=== PATIENT | male | born 1960 | race Caucasian/White ===

== ENCOUNTER 2023-08-01 16:16 | Inpatient (IN) ==
[2023-08-01] MEDS ORDERED: NS 0.9% 1000 ml BAG 1,000 ML IV ONE (16:22)
[2023-08-01 18:18] LABS: ABS Monocytes 0.2 10^3/uL (0.0-1.1); ABS Neutrophils 4.4 10^3/uL (1.5-7.6); ABS Nucleated RBC 0.02 10^3/ul; Eosinophil % 0.2 %; Hematocrit 35.6 % (38-53); Hemoglobin 12.1 g/dL (13.2-16.3); Lymphocyte % 18.1 %; Mean Corpuscular Hemoglobin 32.3 pg (27-33); Mean Corpuscular Volume 95.3 fL (80-97); Mean Platelet Volume 6.7 fL (7.5-11.2); Nucleated Red Blood Cells % 0.3 %/100WBC (0.0-0.8); Platelet Count 227 10^3/uL (150-450); Red Blood Count 3.74 10^6/uL (4.06-5.63); Red Cell Distribution Width 15.7 % (12-17); White Blood Count 5.6 10^3/uL (3.6-10.2)
[2023-08-01 18:38] LABS: Albumin 2.9 g/dL (3.2-5.2); Albumin/Globulin Ratio 0.9 (1-3); Calcium 8.4 mg/dL (8.6-10.3); Creatinine, Serum 1.07 mg/dL (0.67-1.17); Globulin 3.4 g/dL (2-4); Magnesium 1.3 mg/dL (1.9-2.7); Potassium 3.9 mmol/L (3.5-5.0); Total Bilirubin 1.1 mg/dL (0.2-1.0); Total Protein 6.3 g/dL (6.4-8.9); eGFR CKD-EPI 77.5 (>60)
[2023-08-01 19:03] LABS: TSH Ultra Thyroid Stim Horm 17.17 mcIU/mL (0.34-5.60)
[2023-08-01] MEDS: Lactated Ringers 1000 ml BAG 1,000 ML IV SCH ×2 (19:57→23:56)
[2023-08-01] MEDS ORDERED: Magnesium Sulfate 2 gm BAG 2 GM/50 ML BAG IVPB ONE (22:33)
[2023-08-02] MEDS ORDERED: Lactated Ringers 1000 ml BAG 1,000 ML IV ONE ×3 (00:11→18:54)
[2023-08-02] MEDS ORDERED: Remdesivir 100 mg Vial 200 MG in NS 0.9% 250 ml 210 ML IV ONE ×2 (01:00→11:00)
[2023-08-02] MEDS ORDERED: Norepinephrine 4 MG/250mL D5W 4,000 MCG/250 ML BAG IV ONE (01:23)
[2023-08-02] MEDS: Norepinephrine 4 MG/250mL D5W 4,000 MCG/250 ML BAG IV SCH ×4 (01:41→23:45)
[2023-08-02 05:11] LABS: INR 1.15 (0.83-1.13)
[2023-08-02 05:37] LABS: ABS Lymphocytes 0.6 10^3/uL (1.0-4.8); ABS Monocytes 0.1 10^3/uL (0.0-1.1); ABS Neutrophils 1.2 10^3/uL (1.5-7.6); ABS Nucleated RBC 0.03 10^3/ul; Eosinophil % 0.1 %; Hematocrit 29.3 % (38-53); Hemoglobin 9.9 g/dL (13.2-16.3); Lymphocyte % 33.8 %; Mean Corpuscular Hemoglobin 32.2 pg (27-33); Mean Corpuscular Hgb Conc 33.7 g/dL (31-36); Mean Corpuscular Volume 95.7 fL (80-97); Nucleated Red Blood Cells % 1.5 %/100WBC (0.0-0.8); Platelet Count 192 10^3/uL (150-450); Red Blood Count 3.06 10^6/uL (4.06-5.63); Red Cell Distribution Width 15.5 % (12-17); White Blood Count 1.9 10^3/uL (3.6-10.2)
[2023-08-02 05:39] LABS: Magnesium 1.7 mg/dL (1.9-2.7)
[2023-08-02 05:46] LABS: ALT 9 U/L (7-52); Albumin 2.2 g/dL (3.2-5.2); Albumin/Globulin Ratio 0.9 (1-3); Alkaline Phosphatase 75 U/L (35-149); Anion Gap 10 mmol/L (2-16); Blood Urea Nitrogen 38 mg/dL (6-24); CO2 Carbon Dioxide 22 mmol/L (22-32); Calcium 7.4 mg/dL (8.6-10.3); Chloride 98 mmol/L (101-111); Creatinine, Serum 0.79 mg/dL (0.67-1.17); Globulin 2.5 g/dL (2-4); Glucose 78 mg/dL (70-100); Sodium 130 mmol/L (135-145); Total Protein 4.7 g/dL (6.4-8.9); eGFR CKD-EPI 99.2 (>60)
[2023-08-02 05:52] LABS: TSH Ultra Thyroid Stim Horm 9.35 mcIU/mL (0.34-5.60)
[2023-08-02] MEDS ORDERED: Magnesium Sulfate 2 gm BAG 2 GM/50 ML BAG IVPB ONE (05:52)
[2023-08-02 06:34] LABS: Calcium 7.3 mg/dL (8.6-10.3); Creatinine, Serum 0.8 mg/dL (0.67-1.17); Potassium 3.3 mmol/L (3.5-5.0); eGFR CKD-EPI 98.8 (>60)
[2023-08-02] MEDS: KCL 20 MEQ/100 ML IVPREMIX 20 MEQ/100 ML BAG IV SCH ×2 (07:36→10:18)
[2023-08-02] MEDS ORDERED: cefTRIAXone 1 gm/50 mL D5W 1 GM/50 ML BAG IV SCH (10:30)
[2023-08-02] MEDS: DOXYcycline 100 MG in NS 0.9% 250 ml 250 ML IVPB SCH (14:02)
[2023-08-02] MEDS: Lactated Ringers 1000 ml BAG 1,000 ML IV SCH (16:32)
[2023-08-02 16:42] LABS: Calcium 7.3 mg/dL (8.6-10.3); Creatinine, Serum 1.01 mg/dL (0.67-1.17); Phosphorus 2.5 mg/dL (2.5-5.0)
[2023-08-02 17:28] LABS: PO2 Arterial 128 mmHg (80-100)
[2023-08-02 17:32] LABS: PCO2 Arterial <20 mmHg (35-45)
[2023-08-02] MEDS: Enoxaparin 30 MG/0.3 ML SYR SUBCUT SCH (19:18)
[2023-08-02] MEDS ORDERED: Iohexol 300 (CONTRAST) 10 ML SDV IV ONE (19:18)
[2023-08-02] MEDS: metroNIDAZOLE IV 500 MG/100ML 500 MG/100 ML BAG IVPB SCH (21:28)
[2023-08-03] MEDS: DOXYcycline 100 MG in NS 0.9% 250 ml 250 ML IVPB SCH ×2 (01:13→13:20)
[2023-08-03] MEDS ORDERED: Magnesium Hydroxide LIQ 30 ML UDC PO ONE (02:06)
[2023-08-03] MEDS: metroNIDAZOLE IV 500 MG/100ML 500 MG/100 ML BAG IVPB SCH ×3 (04:12→20:09)
[2023-08-03 04:49] LABS: Urine Appearance Turbid; Urine Bilirubin 2+ (Negative); Urine Blood 1+ (Negative); Urine Color Amber; Urine Glucose Negative (Negative); Urine Ketones Negative (Negative); Urine Nitrite Negative (Negative); Urine Protein 3+(>=500 mg/dL) (Negative); Urine Specific Gravity 1.024 (1.002-1.030); Urine Urobilinogen Positive (Negative)
[2023-08-03 04:54] LABS: Hematocrit 23.5 % (38-53); Mean Corpuscular Hemoglobin 32.6 pg (27-33); Mean Corpuscular Volume 95.8 fL (80-97); Mean Platelet Volume 7.1 fL (7.5-11.2); Platelet Count 84 10^3/uL (150-450); Red Blood Count 2.45 10^6/uL (4.06-5.63); Red Cell Distribution Width 15.8 % (12-17); White Blood Count 2.3 10^3/uL (3.6-10.2)
[2023-08-03 04:56] LABS: Urine Bacteria 1+ (Absent); Urine Red Blood Cell 3+(>10/hpf) (Absent); Urine Squamous Epithelial Cell Present (Absent); Urine White Blood Cell 2+(11-20/hpf) (Absent)
[2023-08-03] MEDS: Norepinephrine 4 MG/250mL D5W 4,000 MCG/250 ML BAG IV SCH ×2 (05:14→09:40)
[2023-08-03 05:20] LABS: Calcium 7.3 mg/dL (8.6-10.3); Creatinine, Serum 0.84 mg/dL (0.67-1.17); Magnesium 1.8 mg/dL (1.9-2.7); Phosphorus 2.2 mg/dL (2.5-5.0); Potassium 3.3 mmol/L (3.5-5.0); eGFR CKD-EPI 97.4 (>60)
[2023-08-03 05:39] LABS: ABS Lymphocytes 0.3 10^3/uL (1.0-4.8); ABS Neutrophils 1.9 10^3/uL (1.5-7.6); ABS Nucleated RBC 0.04 10^3/ul; Eosinophil % 0.2 %; Lymphocyte % 15.3 %; Nucleated Red Blood Cells % 1.6 %/100WBC (0.0-0.8)
[2023-08-03 06:09] LABS: ABS Lymphocytes 0.5 10^3/uL (1.0-4.8); ABS Monocytes 0.1 10^3/uL (0.0-1.1); ABS Nucleated RBC 0.03 10^3/ul; Eosinophil % 0.2 %; Hemoglobin 7.9 g/dL (13.2-16.3); Lymphocyte % 18.4 %; Mean Corpuscular Hemoglobin 32.9 pg (27-33); Mean Corpuscular Hgb Conc 34.4 g/dL (31-36); Mean Corpuscular Volume 95.6 fL (80-97); Mean Platelet Volume 7.2 fL (7.5-11.2); Nucleated Red Blood Cells % 1.3 %/100WBC (0.0-0.8); Platelet Count 85 10^3/uL (150-450); Red Blood Count 2.41 10^6/uL (4.06-5.63); Red Cell Distribution Width 15.9 % (12-17); White Blood Count 2.6 10^3/uL (3.6-10.2)
[2023-08-03] MEDS: Lactated Ringers 1000 ml BAG 1,000 ML IV SCH (06:25)
[2023-08-03] MEDS ORDERED: Cefepime ADVAN 1 GM in NS 0.9% 50 ML 50 ML IVPB SCH (08:00)
[2023-08-03] MEDS: Cefepime 1 GM in Dextrose 1 GM/50 ML BAG IV SCH ×2 (08:39→20:08)
[2023-08-03] MEDS ORDERED: Remdesivir 100 mg Q24H MAINTENANCE DOSING IV SCH (09:00)
[2023-08-03] MEDS: Remdesivir 100 mg Q24H MAINTENANCE DOSING IV SCH (09:09)
[2023-08-03] MEDS ORDERED: Magnesium Sulfate 2 gm BAG 2 GM/50 ML BAG IVPB ONE (11:18)
[2023-08-03] MEDS ORDERED: Potassium Phosphate IV 30 MMOL in NS 0.9% 250 ml 250 ML IVPB ONE (11:19)
[2023-08-03] MEDS: D5LR 1000 ml BAG 1,000 ML IV SCH ×2 (11:25→21:16)
[2023-08-03] MEDS ORDERED: Iohexol 350 (CONTRAST) 500 ML MDV IV ONE (12:28)
[2023-08-03] MEDS: Thiamine 100 MG/ML 2 ml VIAL 500 MG in NS 0.9% 250 ml 250 ML IV SCH ×2 (14:32→21:45)
[2023-08-03 16:30] LABS: Calcium 6.8 mg/dL (8.6-10.3); Creatinine, Serum 0.73 mg/dL (0.67-1.17); Magnesium 2.2 mg/dL (1.9-2.7); Phosphorus 3.1 mg/dL (2.5-5.0); Potassium 3.5 mmol/L (3.5-5.0); eGFR CKD-EPI 101.6 (>60)
[2023-08-03] MEDS: Enoxaparin 30 MG/0.3 ML SYR SUBCUT SCH (17:43)
[2023-08-03] MEDS ORDERED: Norepinephrine *QUAD STRENGTH* 16 mg/250 mL NS (ICU ONLY) IV SCH (23:45)
[2023-08-04] MEDS: DOXYcycline 100 MG in NS 0.9% 250 ml 250 ML IVPB SCH ×2 (00:55→12:58)
[2023-08-04] MEDS: metroNIDAZOLE IV 500 MG/100ML 500 MG/100 ML BAG IVPB SCH ×3 (04:40→20:30)
[2023-08-04 06:09] LABS: Calcium 6.9 mg/dL (8.6-10.3); Creatinine, Serum 0.61 mg/dL (0.67-1.17); Magnesium 1.8 mg/dL (1.9-2.7); Phosphorus 2.5 mg/dL (2.5-5.0); Potassium 3.2 mmol/L (3.5-5.0); eGFR CKD-EPI 107.3 (>60)
[2023-08-04] MEDS ORDERED: Magnesium Sulfate IV 1GM/100ML 1 GM/100 ML BAG IV ONE (06:35)
[2023-08-04] MEDS ORDERED: KCL 20 MEQ/100 ML IVPREMIX 20 MEQ/100 ML BAG IV ONE (06:36)
[2023-08-04 07:02] LABS: Hematocrit 20.2 % (38-53); Hemoglobin 7.1 g/dL (13.2-16.3); Mean Corpuscular Hemoglobin 33.5 pg (27-33); Mean Corpuscular Hgb Conc 35.3 g/dL (31-36); Mean Corpuscular Volume 94.8 fL (80-97); Mean Platelet Volume 7.6 fL (7.5-11.2); Platelet Count 54 10^3/uL (150-450); Red Blood Count 2.13 10^6/uL (4.06-5.63); White Blood Count 5.4 10^3/uL (3.6-10.2)
[2023-08-04 07:03] LABS: ABS Lymphocytes 0.3 10^3/uL (1.0-4.8); ABS Monocytes 0.1 10^3/uL (0.0-1.1); ABS Nucleated RBC 0.02 10^3/ul; Anisocytosis 1+; Burr Cells 2+; Lymphocyte % 5.9 %; Nucleated Red Blood Cells % 0.4 %/100WBC (0.0-0.8); Target Cells 1+
[2023-08-04] MEDS: D5LR 1000 ml BAG 1,000 ML IV SCH ×2 (07:40→21:03)
[2023-08-04] MEDS: Cefepime 1 GM in Dextrose 1 GM/50 ML BAG IV SCH ×2 (08:02→21:20)
[2023-08-04] MEDS: KCL 20 MEQ/100 ML IVPREMIX 20 MEQ/100 ML BAG IV SCH ×2 (10:05→12:37)
[2023-08-04 10:54] LABS: Uric Acid 3.7 mg/dL (4.4-7.6)
[2023-08-04] MEDS: Thiamine 100 MG/ML 2 ml VIAL 500 MG in NS 0.9% 250 ml 250 ML IV SCH ×3 (11:03→22:20)
[2023-08-04] MEDS: Remdesivir 100 mg Q24H MAINTENANCE DOSING IV SCH (11:03)
[2023-08-04 11:37] LABS: Immature Retic Fraction 0.32
[2023-08-04 12:28] LABS: % Iron Saturation 52 % (15-55); .Transferrin < 75 mg/dL (203-362); Iron 55 ug/dL (50-212); LDH 169 U/L (140-271); Total Iron Binding Capacity 105 mcg/dL (250-450); Unsaturated Iron Binding 50 ug/dL
[2023-08-04 12:45] LABS: INR 1.86 (0.83-1.13)
[2023-08-04 12:49] LABS: Ferritin 918.5 ng/mL (24-336)
[2023-08-04 12:53] LABS: Folate 1.18 ng/mL (5.90-24.80)
[2023-08-04 12:55] LABS: Vitamin B12 > 1450 pg/mL (180-914)
[2023-08-04] MEDS ORDERED: Pantoprazole VIAL 40 MG VIAL IV SCH ×2 (14:00→21:00)
[2023-08-04 15:14] LABS: Hematocrit 18.6 % (38-53); Hemoglobin 6.3 g/dL (13.2-16.3)
[2023-08-04 15:18] LABS: Corrected Retic Count 0.1 % (0.5-2.2); Hematocrit for Retic CNT 20.3 % (38-53); RBC Retic Count 2.13 10^6/ul (4.06-5.63)
[2023-08-04] MEDS: Pantoprazole 80 mg in NS BAG 80 MG/250 ML BAG IV SCH (17:50)
[2023-08-04 20:53] LABS: Hematocrit 22.5 % (38-53); Hemoglobin 7.7 g/dL (13.2-16.3)
[2023-08-05] MEDS: DOXYcycline 100 MG in NS 0.9% 250 ml 250 ML IVPB SCH ×2 (02:55→14:08)
[2023-08-05] MEDS: Pantoprazole 80 mg in NS BAG 80 MG/250 ML BAG IV SCH ×2 (03:50→12:55)
[2023-08-05] MEDS: metroNIDAZOLE IV 500 MG/100ML 500 MG/100 ML BAG IVPB SCH ×3 (04:15→20:43)
[2023-08-05 05:21] LABS: Calcium 6.9 mg/dL (8.6-10.3); Creatinine, Serum 0.59 mg/dL (0.67-1.17); Magnesium 1.6 mg/dL (1.9-2.7); Phosphorus 1.7 mg/dL (2.5-5.0); Potassium 3.6 mmol/L (3.5-5.0); eGFR CKD-EPI 108.3 (>60)
[2023-08-05] MEDS: D5LR 1000 ml BAG 1,000 ML IV SCH ×2 (06:00→14:53)
[2023-08-05] MEDS ORDERED: Potassium Phosphate IV 30 MMOL in NS 0.9% 250 ml 250 ML IVPB ONE (06:40)
[2023-08-05] MEDS ORDERED: Magnesium Sulfate 2 gm BAG 2 GM/50 ML BAG IVPB ONE (06:40)
[2023-08-05 06:46] LABS: ABS Lymphocytes 0.9 10^3/uL (1.0-4.8); ABS Monocytes 0.1 10^3/uL (0.0-1.1); ABS Neutrophils 4.1 10^3/uL (1.5-7.6); Anisocytosis 2+; Eosinophil % 0.1 %; Hematocrit 19.9 % (38-53); Hemoglobin 6.8 g/dL (13.2-16.3); Mean Corpuscular Hemoglobin 29.8 pg (27-33); Mean Corpuscular Hgb Conc 34.2 g/dL (31-36); Mean Corpuscular Volume 86.9 fL (80-97); Mean Platelet Volume 7.9 fL (7.5-11.2); Nucleated Red Blood Cells % 0.1 %/100WBC (0.0-0.8); Platelet Count 18 10^3/uL (150-450); Red Blood Count 2.29 10^6/uL (4.06-5.63); Target Cells 1+; Toxic Granulation 3+; White Blood Count 5.1 10^3/uL (3.6-10.2)
[2023-08-05] MEDS ORDERED: Acetaminophen IV 1 GM/100ML 1,000 MG/100 ML BAG IV PRN (08:24)
[2023-08-05] MEDS: Cefepime 1 GM in Dextrose 1 GM/50 ML BAG IV SCH ×2 (08:30→20:35)
[2023-08-05] MEDS ORDERED: ACETAMINOPHEN IV PRN (10:35)
[2023-08-05] MEDS: Remdesivir 100 mg Q24H MAINTENANCE DOSING IV SCH (11:12)
[2023-08-05] MEDS: Thiamine 100 MG/ML 2 ml VIAL 500 MG in NS 0.9% 250 ml 250 ML IV SCH ×3 (12:24→21:29)
[2023-08-05] MEDS: Pantoprazole VIAL 40 MG VIAL IV SCH (21:13)
[2023-08-05 21:56] LABS: Hematocrit 24.6 % (38-53); Hemoglobin 8.6 g/dL (13.2-16.3)
[2023-08-05 22:25] LABS: ABS Lymphocytes 0.9 10^3/uL (1.0-4.8); ABS Monocytes 0.1 10^3/uL (0.0-1.1); ABS Neutrophils 3.6 10^3/uL (1.5-7.6); ABS Nucleated RBC 0.01 10^3/ul; Eosinophil % 0.2 %; Lymphocyte % 19.1 %; Mean Corpuscular Hgb Conc 34.7 g/dL (31-36); Mean Corpuscular Volume 86.4 fL (80-97); Mean Platelet Volume 8.3 fL (7.5-11.2); Nucleated Red Blood Cells % 0.2 %/100WBC (0.0-0.8); Platelet Count 28 10^3/uL (150-450); Red Blood Count 2.85 10^6/uL (4.06-5.63); Red Cell Distribution Width 20.2 % (12-17); White Blood Count 4.6 10^3/uL (3.6-10.2)
[2023-08-06] MEDS: D5LR 1000 ml BAG 1,000 ML IV SCH ×4 (01:04→23:28)
[2023-08-06] MEDS: DOXYcycline 100 MG in NS 0.9% 250 ml 250 ML IVPB SCH ×2 (01:20→14:01)
[2023-08-06] MEDS: metroNIDAZOLE IV 500 MG/100ML 500 MG/100 ML BAG IVPB SCH ×3 (03:16→19:27)
[2023-08-06 05:09] LABS: Hematocrit 27.1 % (38-53); Hemoglobin 9.2 g/dL (13.2-16.3); Mean Corpuscular Hemoglobin 29.5 pg (27-33); Mean Corpuscular Hgb Conc 33.9 g/dL (31-36); Mean Corpuscular Volume 87.2 fL (80-97); Platelet Count 25 10^3/uL (150-450); Red Blood Count 3.11 10^6/uL (4.06-5.63); Red Cell Distribution Width 20.5 % (12-17); White Blood Count 4.1 10^3/uL (3.6-10.2)
[2023-08-06 05:21] LABS: Calcium 6.8 mg/dL (8.6-10.3); Creatinine, Serum 0.55 mg/dL (0.67-1.17); Magnesium 1.7 mg/dL (1.9-2.7); Phosphorus 3.6 mg/dL (2.5-5.0); Potassium 3.8 mmol/L (3.5-5.0); eGFR CKD-EPI 110.7 (>60)
[2023-08-06 05:27] LABS: ABS Monocytes 0.2 10^3/uL (0.0-1.1); ABS Neutrophils 2.9 10^3/uL (1.5-7.6); ABS Nucleated RBC 0.01 10^3/ul; Eosinophil % 0.5 %; Lymphocyte % 24.5 %; Nucleated Red Blood Cells % 0.3 %/100WBC (0.0-0.8)
[2023-08-06] MEDS ORDERED: Magnesium Sulfate 2 gm BAG 2 GM/50 ML BAG IVPB ONE (08:36)
[2023-08-06] MEDS ORDERED: KCL 20 MEQ/100 ML IVPREMIX 20 MEQ/100 ML BAG IV ONE (08:36)
[2023-08-06] MEDS: Cefepime 1 GM in Dextrose 1 GM/50 ML BAG IV SCH (08:37)
[2023-08-06] MEDS: Thiamine 100 MG/ML 2 ml VIAL 500 MG in NS 0.9% 250 ml 250 ML IV SCH ×3 (09:56→21:11)
[2023-08-06] MEDS: Pantoprazole VIAL 40 MG VIAL IV SCH ×2 (09:57→20:09)
[2023-08-06] MEDS: Remdesivir 100 mg Q24H MAINTENANCE DOSING IV SCH (09:58)
[2023-08-06] MEDS ORDERED: Ondansetron 4 mg VIAL 2 MG/ML 2 ml VIAL IV ONE (11:17)
[2023-08-06 11:29] LABS: Free T3 1.06 pg/mL (2.5-3.9)
[2023-08-06 11:30] LABS: Free T4 0.62 ng/dL (0.61-1.12)
[2023-08-06] MEDS: cefTRIAXone 1 gm/50 mL D5W 1 GM/50 ML BAG IV SCH (11:38)
[2023-08-06] MEDS: Morphine 2 MG/ML SYRINGE IV PRN (15:39)
[2023-08-06 16:24] LABS: Anaplasma phagocytophilum Negative (Negative); B. miyamotoi PCR, B Negative (Negative); Babesia divergens/MO-1 Negative (Negative); Babesia ducani Negative (Negative); Ehrlichia chaffeensis Negative (Negative); Ehrlichia ewingii/canis Negative (Negative); Ehrlichia muris eauclairensis Negative (Negative)
[2023-08-07] MEDS: DOXYcycline 100 MG in NS 0.9% 250 ml 250 ML IVPB SCH ×2 (00:08→15:51)
[2023-08-07] MEDS: D5LR 1000 ml BAG 1,000 ML IV SCH ×2 (00:10→15:03)
[2023-08-07] MEDS: metroNIDAZOLE IV 500 MG/100ML 500 MG/100 ML BAG IVPB SCH ×2 (03:37→12:19)
[2023-08-07 06:16] LABS: Creatinine, Serum 0.49 mg/dL (0.67-1.17); Magnesium 1.9 mg/dL (1.9-2.7); Phosphorus 3.7 mg/dL (2.5-5.0); Potassium 3.8 mmol/L (3.5-5.0); eGFR CKD-EPI 114.6 (>60)
[2023-08-07 06:32] LABS: ABS Lymphocytes 0.8 10^3/uL (1.0-4.8); ABS Monocytes 0.2 10^3/uL (0.0-1.1); ABS Neutrophils 2.5 10^3/uL (1.5-7.6); ABS Nucleated RBC 0.02 10^3/ul; Eosinophil % 0.6 %; Hematocrit 28.1 % (38-53); Hemoglobin 9.6 g/dL (13.2-16.3); Lymphocyte % 21.4 %; Mean Corpuscular Hemoglobin 29.8 pg (27-33); Mean Corpuscular Volume 87.5 fL (80-97); Mean Platelet Volume 9.7 fL (7.5-11.2); Nucleated Red Blood Cells % 0.4 %/100WBC (0.0-0.8); Platelet Count 10 10^3/uL (150-450); Red Blood Count 3.22 10^6/uL (4.06-5.63); Red Cell Distribution Width 20.4 % (12-17); White Blood Count 3.5 10^3/uL (3.6-10.2)
[2023-08-07] MEDS: Pantoprazole VIAL 40 MG VIAL IV SCH (10:08)
[2023-08-07] MEDS: Thiamine 100 MG/ML 2 ml VIAL 500 MG in NS 0.9% 250 ml 250 ML IV SCH ×2 (10:11→15:52)
[2023-08-07] MEDS: cefTRIAXone 1 gm/50 mL D5W 1 GM/50 ML BAG IV SCH (11:14)
[2023-08-07] MEDS ORDERED: D5LR 1000 ml BAG 1,000 ML IV SCH (15:05)
[2023-08-07] MEDS ORDERED: Atropine 1% (ORAL/SL) 15 ML BTL SL PRN (18:35)
[2023-08-07] MEDS ORDERED: Lorazepam PYXIS KEY PRN (18:45)
[2023-08-07] MEDS: Morphine 2 MG/ML SYRINGE IV PRN ×2 (19:37→23:49)
[2023-08-07] MEDS: LORazepam 2 mg VIAL 1 ml IV PUSH PRN ×2 (19:38→23:49)
[2023-08-08 00:40] VITALS: BP 101/38
[2023-08-09] MEDS ORDERED: Thiamine 100 MG/ML 2 ml VIAL 100 MG in NS 0.9% 50 ML 50 ML IV SCH (09:00)
[2023-08-09 12:44] LABS: Albumin 1.4 g/dL (3.4-4.7); Flag, M-protein Isotype Negative (Negative); Total Protein 3.2 g/dL (6.3 - 7.9)
== END 2023-08-08 00:07 | disposition expired | DRG 871 ==
LOC: ED 16:16 → SUATTDRO 22:28 → EDHOLD 22:28 → ICU 08-02 00:54
PROVIDERS: ADMIT Internal Medicine; ATTEND Internal Medicine